=== PATIENT | female | born 1930 | race Caucasian/White ===

== ENCOUNTER → 2017-11-01 | Outpatient (CLI) | payer OTHER ==
[~2017-11-01] MED LIST: ALT2.5; AMB5 PO; AMLODIPINE BESYL5 M1 PO; ASPIR-LOW81 M1 PO; ATORVASTATIN CA20 M1 PO; BENAZEPRIL HYDR10 M1 PO; CARVEDILOL6.25 M1 PO; CORE25 PO; DIO160 PO; LAC PO; LEVOTHYROXINE0.1 M1 PO; MAC100 PO; METFORMIN ER500 M1 PO; NOR5; THY60 PO; TRE400 PO; TYLENOL; ZOC10
[2017-11-01 09:49] LABS: microscopic required? NO
[2017-11-01 10:08] LABS: UA SPECIFIC GRAVITY <=1.005 (1.005-1.035); urine erythrocyte NEGATIVE (NEGATIVE)
[2017-11-01 10:10] LABS: BASOPHIL % 0.5 % (0-2); PLATELET COUNT 258 x10^3mcL (130-400)
[2017-11-01 10:12] LABS: RED CELL DISTRIBUTION WIDTH 19.4 % (11.5-14.5)
[2017-11-01 10:37] LABS: ALBUMIN 3.5 g/dL (3.4-5.0); ALKALINE PHOSPHATASE 135 U/L (46-116); ALT/SGPT 19 U/L (14-59); AST/SGOT 18 U/L (15-37); BILIRUBIN TOTAL 0.4 mg/dL (0.20-1.00); CALCIUM 9.4 mg/dL (8.5-10.1); CARBON DIOXIDE 29.9 mmol/L (21-32); CHLORIDE SERUM 95 mmol/L (98-107); CREATININE SERUM 0.8 mg/dL (0.6-1.0); FREE T4 1.12 ng/dL (0.76-1.46); GLUCOSE SERUM 95 mg/dL (74-106); HDL CHOLESTEROL 56 mg/dL (40-60); POTASSIUM SERUM 5.1 mmol/L (3.5-5.1); SODIUM SERUM 131 mmol/L (136-145); TRIGLYCERIDES 57 mg/dL (<150)
[2017-11-01 10:38] LABS: CHOLESTEROL 132 mg/dL (<200); CHOLESTEROL/HDL RATIO 2.4; TOTAL PROTEIN, SERUM 8.5 g/dL (6.4-8.2)
[2017-11-02 17:06] LABS: VITAMIN D 25-HYDROXY 49.1 ng/mL (30.0-100.0)
== END | disposition home or self-care (01) ==
LOC: LB 09:11
DX: I10 Essential (primary) hypertension (principal); E78.5 Hyperlipidemia, unspecified; E03.9 Hypothyroidism, unspecified; I50.22 Chronic systolic (congestive) heart failure; E74.39 Other disorders of intestinal carbohydrate absorption
CPT/HCPCS: 84439

== ENCOUNTER 2018-05-23 10:23 | Inpatient (IN) | payer OTHER ==
[~2018-05-23] VITALS: Ht 152.4 cm; Wt 54.4 kg
[2018-05-23 11:21] VITALS: Ht 152.4 cm; Wt 54.4 kg
[2018-05-23] MEDS ORDERED: LEVOTHYROXIN0.125 M2 PO (11:33)
[2018-05-23] MEDS ORDERED: MELATONIN10 M2 PO (11:33)
[2018-05-23] MEDS ORDERED: LISINOPRIL40 MG PO (11:34)
[2018-05-23] MEDS ORDERED: CARVEDILOL12.5 M1 PO (11:34)
[2018-05-23] MEDS ORDERED: MELOXICAM7.5 M1 PO (11:35)
[2018-05-23] MEDS ORDERED: XARELTO10 M1 PO (11:35)
[2018-05-23] MEDS ORDERED: METFORMIN HYDR500 M1 PO (11:36)
[2018-05-23] MEDS ORDERED: TYLENOL PM EX-1 EACH PO (11:36)
[2018-05-23 14:34] LABS: BASOPHIL % 0.2 % (0-2); PLATELET COUNT 302 x10^3mcL (130-400)
[2018-05-23 14:36] LABS: RED CELL DISTRIBUTION WIDTH 19.1 % (11.5-14.5)
[2018-05-23 15:25] LABS: ALKALINE PHOSPHATASE 142 U/L (46-116); ALT/SGPT 18 U/L (14-59); AST/SGOT 16 U/L (15-37); BILIRUBIN TOTAL 0.3 mg/dL (0.20-1.00); CALCIUM 8.7 mg/dL (8.5-10.1); CARBON DIOXIDE 26.7 mmol/L (21-32); CHLORIDE SERUM 90 mmol/L (98-107); CREATININE SERUM 0.6 mg/dL (0.6-1.0); GLUCOSE SERUM 97 mg/dL (74-106); MAGNESIUM 1.9 mg/dL (1.8-2.4); POTASSIUM SERUM 4.1 mmol/L (3.5-5.1); TOTAL PROTEIN, SERUM 7.4 g/dL (6.4-8.2)
[2018-05-23 15:26] LABS: ALBUMIN 2.5 g/dL (3.4-5.0)
[2018-05-23 15:27] LABS: SODIUM SERUM 123 mmol/L (136-145)
[2018-05-23 16:29] LABS: microscopic required? NO
[2018-05-23 16:35] LABS: urine erythrocyte NEGATIVE (NEGATIVE)
[2018-05-23 16:46] VITALS: BP 154/69
[2018-05-23 17:01] LABS: CHOLESTEROL/HDL RATIO 2.8
[2018-05-23 17:13] LABS: TOTAL IRON BINDING CAPACITY 261 ug/dL (250-450)
[2018-05-23 17:22] LABS: FREE T4 1.24 ng/dL (0.76-1.46); T4(THYROXINE) 7.8 ug/dL (4.7-13.3)
[2018-05-23 17:23] LABS: IRON 21 ug/dL (50-170)
[2018-05-23 17:46] LABS: RED BLOOD CELLS 3.51 M/mm3 (4.10-5.10)
[2018-05-23 17:47] LABS: T3 TOTAL 0.47 ng/mL
[2018-05-24 05:28] VITALS: BP 156/72
[2018-05-24 06:14] LABS: BASOPHIL % 0.5 % (0-2); PLATELET COUNT 275 x10^3mcL (130-400)
[2018-05-24 06:15] LABS: RED CELL DISTRIBUTION WIDTH 19.6 % (11.5-14.5)
[2018-05-24 06:43] LABS: CALCIUM 8.1 mg/dL (8.5-10.1); CARBON DIOXIDE 27.9 mmol/L (21-32); CHLORIDE SERUM 90 mmol/L (98-107); CREATININE SERUM 0.7 mg/dL (0.6-1.0); GLUCOSE SERUM 90 mg/dL (74-106); MAGNESIUM 1.9 mg/dL (1.8-2.4); PHOSPHOROUS 3.8 mg/dL (2.5-4.9); POTASSIUM SERUM 4.2 mmol/L (3.5-5.1)
[2018-05-24 06:52] LABS: SODIUM SERUM 124 mmol/L (136-145)
[2018-05-24 09:04] VITALS: BP 169/67
[2018-05-24 10:49] VITALS: BP 146/69
[2018-05-24 11:42] LABS: CALCIUM 8.1 mg/dL (8.5-10.1); CARBON DIOXIDE 28.3 mmol/L (21-32); CHLORIDE SERUM 92 mmol/L (98-107); CREATININE SERUM 0.6 mg/dL (0.6-1.0); GLUCOSE SERUM 99 mg/dL (74-106); POTASSIUM SERUM 4.1 mmol/L (3.5-5.1)
[2018-05-24 11:44] LABS: SODIUM SERUM 123 mmol/L (136-145)
[2018-05-24 17:00] VITALS: BP 111/54
[2018-05-24 19:00] VITALS: BP 135/68; BP 158/58
[2018-05-24 22:01] VITALS: BP 158/45
[2018-05-25 06:18] VITALS: BP 170/64
[2018-05-25 07:24] LABS: PLATELET COUNT 272 x10^3mcL (130-400)
[2018-05-25 07:32] LABS: CALCIUM 8.6 mg/dL (8.5-10.1); CARBON DIOXIDE 28.1 mmol/L (21-32); CHLORIDE SERUM 96 mmol/L (98-107); CREATININE SERUM 0.6 mg/dL (0.6-1.0); GLUCOSE SERUM 78 mg/dL (74-106); MAGNESIUM 1.9 mg/dL (1.8-2.4); PHOSPHOROUS 3.6 mg/dL (2.5-4.9); POTASSIUM SERUM 3.6 mmol/L (3.5-5.1); SODIUM SERUM 129 mmol/L (136-145)
[2018-05-25 07:37] LABS: RED CELL DISTRIBUTION WIDTH 19.5 % (11.5-14.5)
[2018-05-25 09:01] VITALS: BP 148/57
[2018-05-25 13:21] LABS: ATYPICAL LYMPH 5 %; BAND NEUTROPHIL 4 % (0-10); BASOPHIL 0 % (0-2); MONOCYTE 7 % (0-7); SEGMENTED NEUTROPHILS 73 % (37-75)
[2018-05-25 13:23] LABS: PLATELET MORPHOLOGY PLATELETS DECREASED; rbc morphology (normal/abnorm) ABNORMAL (NORMAL)
[2018-05-25 13:24] LABS: schistocyte (helmet cell) 1+
[2018-05-25 16:41] VITALS: BP 139/59
[2018-05-25 20:42] VITALS: BP 146/53
[2018-05-26 05:13] VITALS: BP 157/59
[2018-05-26 06:35] LABS: BASOPHIL % 0.2 % (0-2); PLATELET COUNT 264 x10^3mcL (130-400)
[2018-05-26 06:47] LABS: CALCIUM 8.2 mg/dL (8.5-10.1); CARBON DIOXIDE 27.9 mmol/L (21-32); CHLORIDE SERUM 94 mmol/L (98-107); CREATININE SERUM 0.6 mg/dL (0.6-1.0); GLUCOSE SERUM 84 mg/dL (74-106); POTASSIUM SERUM 3.8 mmol/L (3.5-5.1); SODIUM SERUM 128 mmol/L (136-145)
[2018-05-26 06:53] LABS: RED CELL DISTRIBUTION WIDTH 19.6 % (11.5-14.5)
[2018-05-26 09:54] VITALS: BP 150/45
[2018-05-26 18:37] VITALS: BP 114/57
[2018-05-26 21:24] VITALS: BP 128/63
[2018-05-27 05:21] VITALS: BP 153/66
[2018-05-27 08:58] LABS: CALCIUM 8.3 mg/dL (8.5-10.1); CARBON DIOXIDE 29.5 mmol/L (21-32); CHLORIDE SERUM 95 mmol/L (98-107); CREATININE SERUM 0.6 mg/dL (0.6-1.0); GLUCOSE SERUM 98 mg/dL (74-106); POTASSIUM SERUM 4.1 mmol/L (3.5-5.1); SODIUM SERUM 129 mmol/L (136-145)
[2018-05-27 09:00] LABS: BASOPHIL % 0.2 % (0-2); PLATELET COUNT 287 x10^3mcL (130-400)
[2018-05-27 09:01] LABS: RED CELL DISTRIBUTION WIDTH 19.4 % (11.5-14.5)
[2018-05-27 09:44] VITALS: BP 171/66
[2018-05-27 13:37] VITALS: BP 150/69
[2018-05-27 14:12] VITALS: BP 150/69
== END 2018-05-27 17:55 | disposition home health service (06) | DRG 552 ==
LOC: ED 10:23 → MU 16:00
PROVIDERS: Emergency Medicine; Internal Medicine; ADMIT Family Medicine
DX: S32.010A Wedge compression fracture of first lumbar vertebra, initial encounter for closed fracture (principal); E87.1 Hypo-osmolality and hyponatremia; D68.69 Other thrombophilia; E44.0 Moderate protein-calorie malnutrition; R64 Cachexia; S32.040A Wedge compression fracture of fourth lumbar vertebra, initial encounter for closed fracture; E11.65 Type 2 diabetes mellitus with hyperglycemia; M51.37 Other intervertebral disc degeneration, lumbosacral region; M48.07 Spinal stenosis, lumbosacral region; M85.88 Other specified disorders of bone density and structure, other site; I11.0 Hypertensive heart disease with heart failure; I50.9 Heart failure, unspecified; D50.9 Iron deficiency anemia, unspecified; E03.9 Hypothyroidism, unspecified; Z68.24 Body mass index [BMI] 24.0-24.9, adult; Z79.84 Long term (current) use of oral hypoglycemic drugs; W18.39XA Other fall on same level, initial encounter; Y92.000 Kitchen of unspecified non-institutional (private) residence as the place of occurrence of the external cause
CPT/HCPCS: 82962; 83880; 84439; 97110-GP; 97763; C1758; J1885; J3490; J7030

== ENCOUNTER 2018-06-21 17:57 | Inpatient (IN) | payer OTHER ==
[~2018-06-21] VITALS: Ht 152.4 cm; Wt 51.0 kg
[~2018-06-21 17:57] MED LIST changes: +CARVEDILOL12.5 M1 PO; +LEVOTHYROXIN0.125 M2 PO; +LISINOPRIL40 MG PO; +MELATONIN10 M2 PO; +MELOXICAM7.5 M1 PO; +METFORMIN HYDR500 M1 PO; +TYLENOL PM EX-1 EACH PO; +XARELTO10 M1 PO
[2018-06-21 19:01] LABS: BASOPHIL % 0.2 % (0-2); PLATELET COUNT 134 x10^3mcL (130-400)
[2018-06-21 19:03] LABS: UA SPECIFIC GRAVITY <=1.005 (1.005-1.035); microscopic required? YES; urine erythrocyte 2+ (NEGATIVE)
[2018-06-21 19:10] LABS: RED CELL DISTRIBUTION WIDTH 21.1 % (11.5-14.5)
[2018-06-21 19:24] LABS: ALKALINE PHOSPHATASE 160 U/L (46-116); ALT/SGPT 29 U/L (14-59); AMYLASE 93 U/L (25-115); AST/SGOT 26 U/L (15-37); BILIRUBIN TOTAL 0.2 mg/dL (0.20-1.00); CARBON DIOXIDE 26.2 mmol/L (21-32); CHLORIDE SERUM 87 mmol/L (98-107); CHOLESTEROL 146 mg/dL (<200); CREATININE SERUM 0.6 mg/dL (0.6-1.0); GLUCOSE SERUM 103 mg/dL (74-106); HDL CHOLESTEROL 44 mg/dL (40-60); LIPASE 300 IU/L (73-393); POTASSIUM SERUM 4.6 mmol/L (3.5-5.1); TOTAL PROTEIN, SERUM 7.6 g/dL (6.4-8.2)
[2018-06-21 19:26] LABS: ALBUMIN 2.9 g/dL (3.4-5.0)
[2018-06-21 19:31] LABS: SODIUM SERUM 120 mmol/L (136-145)
[2018-06-21] MEDS ORDERED: BACTRIM DS1 TAB (20:00)
[2018-06-21 20:14] LABS: AMPHETAMINE QUAL UR NONE DETECTED (See below)
[2018-06-21 20:22] LABS: CHOLESTEROL/HDL RATIO 3.4; MAGNESIUM 1.6 mg/dL (1.8-2.4); PHOSPHOROUS 3.1 mg/dL (2.5-4.9)
[2018-06-21 20:48] VITALS: BP 148/71
[2018-06-21 21:00] VITALS: Ht 152.4 cm; Wt 51.0 kg
[2018-06-22 05:34] VITALS: BP 167/67
[2018-06-22 06:24] LABS: BASOPHIL % 0.7 % (0-2)
[2018-06-22 06:34] LABS: CALCIUM 7.5 mg/dL (8.5-10.1); CARBON DIOXIDE 24.9 mmol/L (21-32); CHLORIDE SERUM 96 mmol/L (98-107); CREATININE SERUM 0.5 mg/dL (0.6-1.0); GLUCOSE SERUM 86 mg/dL (74-106); MAGNESIUM 1.4 mg/dL (1.8-2.4); POTASSIUM SERUM 3.7 mmol/L (3.5-5.1); SODIUM SERUM 127 mmol/L (136-145)
[2018-06-22 07:01] LABS: PLATELET COUNT 115 x10^3mcL (130-400); RED CELL DISTRIBUTION WIDTH 21.1 % (11.5-14.5)
[2018-06-22 09:12] VITALS: BP 138/56
[2018-06-22 17:11] VITALS: BP 151/64
[2018-06-22 20:40] VITALS: BP 159/68
[2018-06-23 05:49] VITALS: BP 147/61
[2018-06-23 06:31] LABS: CALCIUM 9.1 mg/dL (8.5-10.1); CARBON DIOXIDE 28.2 mmol/L (21-32); CHLORIDE SERUM 93 mmol/L (98-107); CREATININE SERUM 0.6 mg/dL (0.6-1.0); GLUCOSE SERUM 90 mg/dL (74-106); MAGNESIUM 1.7 mg/dL (1.8-2.4); PHOSPHOROUS 3.6 mg/dL (2.5-4.9); POTASSIUM SERUM 4.2 mmol/L (3.5-5.1); SODIUM SERUM 126 mmol/L (136-145)
[2018-06-23 07:29] LABS: BASOPHIL % 0.9 % (0-2); PLATELET COUNT 138 x10^3mcL (130-400)
[2018-06-23 07:30] LABS: RED CELL DISTRIBUTION WIDTH 21.3 % (11.5-14.5)
[2018-06-23 09:50] VITALS: BP 140/59
[2018-06-23 17:40] VITALS: BP 176/75
[2018-06-23 21:07] VITALS: BP 149/65
[2018-06-24 05:43] VITALS: BP 149/64
[2018-06-24 06:36] LABS: BASOPHIL % 0.3 % (0-2); PLATELET COUNT 160 x10^3mcL (130-400); RED CELL DISTRIBUTION WIDTH 21.6 % (11.5-14.5)
[2018-06-24 07:16] LABS: CHLORIDE SERUM 93 mmol/L (98-107); CREATININE SERUM 0.6 mg/dL (0.6-1.0); GLUCOSE SERUM 91 mg/dL (74-106); MAGNESIUM 1.7 mg/dL (1.8-2.4); PHOSPHOROUS 3.3 mg/dL (2.5-4.9); POTASSIUM SERUM 4.1 mmol/L (3.5-5.1); SODIUM SERUM 128 mmol/L (136-145)
[2018-06-24 09:24] VITALS: BP 159/53
[2018-06-24 10:48] LABS: rbc morphology (normal/abnorm) ABNORMAL (NORMAL); tear drop cell (dacryocyte) 1+
[2018-06-24 17:28] LABS: CALCIUM 9.9 mg/dL (8.5-10.1); CARBON DIOXIDE 28.9 mmol/L (21-32); CHLORIDE SERUM 93 mmol/L (98-107); CREATININE SERUM 0.6 mg/dL (0.6-1.0); GLUCOSE SERUM 104 mg/dL (74-106); POTASSIUM SERUM 4.2 mmol/L (3.5-5.1); SODIUM SERUM 128 mmol/L (136-145)
[2018-06-24 17:34] VITALS: BP 167/76
[2018-06-24 21:23] VITALS: BP 148/68
[2018-06-25 05:02] VITALS: BP 156/66
[2018-06-25 07:22] LABS: PLATELET COUNT 172 x10^3mcL (130-400)
[2018-06-25 07:32] LABS: RED CELL DISTRIBUTION WIDTH 22.1 % (11.5-14.5)
[2018-06-25 07:41] LABS: CALCIUM 8.6 mg/dL (8.5-10.1); CARBON DIOXIDE 27.2 mmol/L (21-32); CHLORIDE SERUM 96 mmol/L (98-107); CREATININE SERUM 0.5 mg/dL (0.6-1.0); GLUCOSE SERUM 86 mg/dL (74-106); MAGNESIUM 1.7 mg/dL (1.8-2.4); PHOSPHOROUS 3.2 mg/dL (2.5-4.9); POTASSIUM SERUM 3.9 mmol/L (3.5-5.1); SODIUM SERUM 131 mmol/L (136-145)
[2018-06-25 10:01] VITALS: BP 146/63
[2018-06-25] MEDS ORDERED: LEVAQUIN750 MG PO (11:05)
[2018-06-25] MEDS ORDERED: SOD1 PO ×2 (11:08→11:11)
[2018-06-25 11:13] VITALS: BP 146/63
[2018-06-25 16:56] VITALS: BP 164/73
== END 2018-06-25 19:49 | disposition home health service (06) | DRG 640 ==
LOC: ED 17:57 → MU 19:44 → DU 20:32 → MU 20:45
PROVIDERS: Emergency Medicine; Internal Medicine; ADMIT Family Medicine
DX: E87.1 Hypo-osmolality and hyponatremia (principal); N17.0 Acute kidney failure with tubular necrosis; N39.0 Urinary tract infection, site not specified; E44.0 Moderate protein-calorie malnutrition; I50.30 Unspecified diastolic (congestive) heart failure; D50.9 Iron deficiency anemia, unspecified; E11.9 Type 2 diabetes mellitus without complications; E83.42 Hypomagnesemia; E03.9 Hypothyroidism, unspecified; G47.00 Insomnia, unspecified; M19.90 Unspecified osteoarthritis, unspecified site; Z68.22 Body mass index [BMI] 22.0-22.9, adult; Z95.810 Presence of automatic (implantable) cardiac defibrillator
CPT/HCPCS: 82962; 83880; 97110-GP; 97112-GP; 97530-GP; J1956; J3490; J7030; Q0092